=== PATIENT | female | born 2000 | race Caucasian/White ===

== ENCOUNTER 2021-03-16 11:29 | Emergency (ER) | payer OTHER ==
[~2021-03-16] VITALS: Ht 157.5 cm; Wt 74.1 kg
[2021-03-16 11:29] VITALS: BP 137/65
--- NOTE | 2021-03-16 14:59 | REP ---
INDICATION: twisted/pain welling over fibula. COMPARISON: None. TECHNIQUE: Four views FINDINGS: Soft tissue swelling over the anterolateral aspect of the ankle. The distal tibia and fibular without fracture avulsion. The mortise joint with symmetric and preserved with no talar dome osteochondral defect. Subtalar joints are intact talonavicular and calcaneocuboid joints are normal. No heel spurs. Tarsal bones and articulations and proximal meta tarsals were grossly intact. IMPRESSION: 1. Some soft tissue swelling anterolateral aspect of the ankle without fracture, avulsion, disruption of the mortise joint or other acute bony finding. <Electronically signed by Marek Diana > 03/16/21 [id number]
== END 2021-03-16 15:34 | disposition home or self-care (01) ==
LOC: M ED 11:29
DX: S93.401A Sprain of unspecified ligament of right ankle, initial encounter (principal); X50.9XXA Other and unspecified overexertion or strenuous movements or postures, initial encounter; Y92.89 Other specified places as the place of occurrence of the external cause

== ENCOUNTER 2025-01-24 17:41 | Emergency (ER) | payer OTHER, SELFPAY ==
[~2025-01-24] VITALS: Ht 157.5 cm; Wt 71.3 kg
[2025-01-24 17:44] VITALS: TEMP 97.4
[2025-01-24] MEDS ORDERED: METR70GE8 (17:55)
[2025-01-24 18:46] LABS: BASO # 0.1 10^3/uL (0.0-0.2); BASO % 0.5 % (0.0-1.0); EOS # 0.1 10^3/uL (0.0-0.5); EOS % 0.9 % (0.0-3.0); LYMPH # 2.3 10^3/uL (1.5-5.0); LYMPH % 24.2 % (24.0-44.0); MONO # 0.9 10^3/uL (0.0-0.8); MONO % 9.5 % (2.0-8.0); NEUTROPHILS # 6.1 10^3/uL (1.5-8.5); NEUTROPHILS % 64.4 % (36.0-66.0); PLATELET COUNT, AUTOMATED 349 10^3/uL (150-450)
[2025-01-24 19:03] LABS: HCG, SERUM QUALITATIVE NEGATIVE (NEGATIVE)
[2025-01-24 19:04] LABS: ALT/SGPT 25 U/L (7.0-40); AST/SGOT 24 U/L (<34); CALCIUM LEVEL 9.4 MG/DL (8.5-10.1); CARBON DIOXIDE LEVEL 30 MMOL/L (20-31); CHLORIDE LEVEL 103 MMOL/L (98-107); CREATININE FOR GFR 0.90 MG/DL (0.55-1.30); GLOMERULAR FILTRATION RATE > 90.0 (>60); POTASSIUM SERUM 4.3 MMOL/L (3.5-5.1); SODIUM LEVEL 140 MMOL/L (136-145)
[2025-01-24] MEDS: NS (Normal Saline) 0.9% 1,000 ML IV ONE (19:24)
[2025-01-24] MEDS ORDERED: ISOVUE-370 76% 100 ML VIAL As Ordered ONE (19:25)
[2025-01-24 19:30] VITALS: BP 107/60
[2025-01-24 21:28] LABS: KETONE, URINE AUTO RFX NEGATIVE (NEGATIVE); LEUKOCYTE ESTERASE UR AUTO RFX NEGATIVE (NEGATIVE); NITRITE, URINE AUTO RFX NEGATIVE (NEGATIVE); RBC, URINE AUTO RFX 0 /HPF (0-3); SQUAM EPITHELIAL CELL UR AURFX 1 /HPF (0-6); WBC, URINE AUTO RFX 0 /HPF (0-3)
[2025-01-24 22:40] LABS: Trichomonas vaginalis (AMP) NOT DETECTED (NEGATIVE)
[2025-01-24 23:03] LABS: GC DNA AMPLIFICATION NEGATIVE (NEGATIVE)
[2025-01-24] MEDS ORDERED: DOXY-441 PO (23:18)
[2025-01-25] VITALS: O2SAT 98
[2025-01-25] MEDS: DOXYCYCLINE HYCLATE 100 MG TABLET PO ONE (00:04)
== END 2025-01-25 00:18 | disposition home or self-care (01) ==
LOC: M ED 17:41
DX: A74.9 Chlamydial infection, unspecified (principal); R10.9 Unspecified abdominal pain; F10.10 Alcohol abuse, uncomplicated; Z79.2 Long term (current) use of antibiotics
CPT/HCPCS: 36415; 71275; 74177; 80048; 80076; 81001; 83690; 84703; 85025; 87661; 87810; 87850; 93041; 99285; Q9967